=== PATIENT | female | born 1970 | race Caucasian/White ===

== ENCOUNTER → 2017-08-28 | Outpatient (CLI) | payer BC | END | disposition home or self-care (01) | LOC: CFH 09:57 | PROVIDERS: ATTEND Obstetrics & Gynecology | DX: Z12.31 Encounter for screening mammogram for malignant neoplasm of breast (principal) | CPT/HCPCS: 77067 ==

== ENCOUNTER 2019-04-08 11:45 | Day surgery (SDC) | payer BC ==
[2019-04-05 09:28] LABS: BASOPHILS # (AUTO) 0.02 x10^3/uL (0-0.1); BASOPHILS % (AUTO) 0 % (0-1); EOSINOPHILS # (AUTO) 0.09 x10^3/uL (0-0.4); EOSINOPHILS % (AUTO) 2 % (1-7); LYMPHOCYTES # (AUTO) 0.95 x10^3/uL (1-3.4); LYMPHOCYTES % (AUTO) 20 % (22-44); MD NO; MEAN CORPUSCULAR HEMOGLOBIN 31.5 pg (27.0-34.8); MEAN CORPUSCULAR HGB CONC 33.8 g/dL (32.4-35.8); MEAN CORPUSCULAR VOLUME 93.3 fL (80-100); MONOCYTES # (AUTO) 0.38 x10^3/uL (0.2-0.8); MONOCYTES % (AUTO) 8 % (2-9); NEUTROPHILS # (AUTO) 3.37 x10^3/uL (1.8-6.8); NEUTROPHILS % (AUTO) 70 % (42-75); PLATELET COUNT 204 x10^3/uL (130-400); RED BLOOD COUNT 4.53 x10^6/uL (3.82-5.3); RED CELL DISTRIBUTION WIDTH 12.8 % (9.6-15.2)
[2019-04-05 09:39] LABS: ALANINE AMINOTRANSFERASE 26 U/L (12-78); ALBUMIN 3.5 g/dL (3.4-5.0); ANION GAP 6 mmol/L (5-15); CALCIUM 8.5 mg/dL (8.5-10.1); CHLORIDE 105 mmol/L (98-107); CREATININE 0.96 mg/dL (0.55-1.02)
[2019-04-05 09:44] LABS: ALKALINE PHOSPHATASE 79 U/L (45-117); BILIRUBIN,TOTAL 0.6 mg/dL (0.2-1.0); TOTAL PROTEIN 6.7 g/dL (6.4-8.2)
[~2019-04-08] VITALS: Ht 160 cm; Wt 69.0 kg
[~2019-04-08 11:45] MED LIST: No meds per pt.
[2019-04-08] MEDS ORDERED: LACTATED RINGERS 1,000 ML IV SCH (12:17)
[2019-04-08 12:21] VITALS: BP 115/57
[2019-04-08] MEDS ORDERED: LIDOCAINE-MPF 1%, 2ML INFIL ONE (12:30)
[2019-04-08] MEDS ORDERED: GABAPENTIN 300 MG CAPSULE PO ONE (12:30)
[2019-04-08] MEDS ORDERED: ACETAMINOPHEN 500 MG TABLET PO ONE (12:30)
[2019-04-08] MEDS ORDERED: SCOPOLAMINE 1MG PATCH TD SCH (12:30)
[2019-04-08] MEDS ORDERED: hydrALAzine 20 MG/ML, 1ML IV PRN (13:00)
[2019-04-08] MEDS ORDERED: PROMETHAZINE 25 MG/ML, 1ML IV PRN (13:00)
[2019-04-08] MEDS ORDERED: LABETALOL 5MG/ML, 20ML IV PRN (13:00)
[2019-04-08] MEDS ORDERED: HALOPERIDOL 5 MG/ML IV PRN (13:00)
[2019-04-08] MEDS ORDERED: OXYcodone 5 MG/5 ML ORAL.SOL UDC PO PRN (13:00)
[2019-04-08] MEDS ORDERED: MEPERIDINE/PF 25MG/ML,1ML IVPush PRN (13:00)
[2019-04-08] MEDS ORDERED: FENTANYL PF 250 MCG/5ML ONE (13:29)
[2019-04-08] MEDS ORDERED: MIDAZOLAM 1 MG/ML, 2ML ONE (13:29)
[2019-04-08] MEDS ORDERED: EPINEPHRINE 1 MG/ML, 1ML ONE (13:39)
[2019-04-08] MEDS ORDERED: BUPIVACAINE/PF 0.25% ONE (13:39)
[2019-04-08] MEDS ORDERED: FLUORESCEIN SODIUM 500 MG/5 ML ONE (13:39)
[2019-04-08] MEDS ORDERED: GLYCOPYRROLATE 0.2MG/1ML, 5ML ONE (14:13)
[2019-04-08] MEDS ORDERED: NEOSTIGMINE 1 MG/ML, 10ML ONE (14:13)
[2019-04-08] MEDS ORDERED: PROPOFOL 10 MG/ML, 20ML ONE (14:13)
[2019-04-08] MEDS ORDERED: ONDANSETRON 2MG/ML, 2ML ONE ×2 (14:13)
[2019-04-08] MEDS ORDERED: DEXAMETHASONE 4 MG/ML, 1ML ONE (14:13)
[2019-04-08] MEDS ORDERED: CEFAZOLIN 1,000 MG ONE (14:13)
[2019-04-08] MEDS ORDERED: ROCURONIUM 10MG/ML,5ML ONE (14:13)
[2019-04-08] MEDS ORDERED: SUCCINYLCHOLINE 20 MG/ML, 10ML ONE (14:13)
[2019-04-08] MEDS ORDERED: GENTAMICIN 80 MG/2 ML ONE (14:40)
[2019-04-08] MEDS: FENTANYL PF 100 MCG/2ML IV PRN ×3 (16:40→17:25)
[2019-04-08] MEDS ORDERED: HYDROmorphone 1 MG/ML, 1ML INJ ONE (16:42)
[2019-04-08] MEDS ORDERED: FENTANYL PF 100 MCG/2ML ONE (16:42)
[2019-04-08] MEDS: HYDROmorphone 2 MG/ML, 1ML IVPush PRN ×2 (16:50→17:15)
[2019-04-08] MEDS ORDERED: PROMETHAZINE 25 MG/ML, 1ML ONE (16:51)
[2019-04-08] MEDS ORDERED: DIAZEPAM 5 MG/ML, 2ML ONE (17:24)
[2019-04-08] MEDS ORDERED: DIAZEPAM 5 MG/ML, 2ML IVPush PRN (17:30)
[2019-04-08] MEDS ORDERED: ONDANSETRON 2MG/ML, 2ML IV PRN (18:30)
[2019-04-08] MEDS ORDERED: ACETAMINOPHEN 650 MG SUPP PR PRN (18:30)
[2019-04-08] MEDS ORDERED: ACETAMINOPHEN 325 MG TABLET PO PRN (18:30)
[2019-04-08] MEDS ORDERED: D5%-LACTATED RINGERS 1,000 ML IV SCH (18:30)
[2019-04-08] MEDS ORDERED: morphine SULFATE 10 MG/ML, 1ML IV PRN (18:30)
[2019-04-08] MEDS ORDERED: OXYcodone/APAP 5/325MG TABLET PO PRN (18:30)
[2019-04-08 20:19] LABS: ANION GAP 7 mmol/L (5-15); CHLORIDE 108 mmol/L (98-107); CREATININE 0.84 mg/dL (0.55-1.02)
[2019-04-08 20:21] LABS: MEAN CORPUSCULAR HEMOGLOBIN 31.3 pg (27.0-34.8); MEAN CORPUSCULAR HGB CONC 33.6 g/dL (32.4-35.8); MEAN CORPUSCULAR VOLUME 92.9 fL (80-100); MEAN PLATELET VOLUME 8.5 fL (7.4-10.4); PLATELET COUNT 193 x10^3/uL (130-400); RED BLOOD COUNT 4.28 x10^6/uL (3.82-5.3); RED CELL DISTRIBUTION WIDTH 12.5 % (9.6-15.2)
[2019-04-08] MEDS ORDERED: IBUPROFEN 600 MG TABLET PO SCH (21:00)
[2019-04-08] MEDS ORDERED: SIMETHICONE 80 MG CHEW TAB PO SCH (21:00)
[2019-04-08] MEDS ORDERED: ZOLPIDEM 5MG TABLET PO PRN (21:00)
[2019-04-08 21:15] LABS: MD YES
[2019-04-08 21:19] LABS: BAND#(MANUAL) 0.09 x10^3/uL; BANDS%(MANUAL) 1 % (0-7); LYMPH#(MANUAL) 0.74 x10^3/uL (1-3.4); LYMPHS% (MANUAL) 8 % (22-44); MONOS#(MANUAL) 0.19 x10^3/uL (0.3-2.7); MONOS% (MANUAL) 2 % (2-9); SEG#(MANUAL) 8.28 x10^3/uL (1.8-6.8); SEGS% (MANUAL) 89 % (42-75)
[2019-04-08 21:20] LABS: <PLATELET ESTIMATE> ADEQUATE; <PLT MORPHOLOGY> NORMAL PLT MORPH; <RBC MORPHOLOGY> NORMAL
== END 2019-04-08 22:00 | disposition home or self-care (01) ==
LOC: OUT 11:45 → EDSTATUS 15:00 → 4NE 18:02 → OUT 22:00
PROVIDERS: ATTEND Obstetrics & Gynecology
DX: N92.0 Excessive and frequent menstruation with regular cycle (principal); N39.3 Stress incontinence (female) (male); N87.9 Dysplasia of cervix uteri, unspecified; N81.10 Cystocele, unspecified; K21.9 Gastro-esophageal reflux disease without esophagitis; Z79.899 Other long term (current) drug therapy; Z88.2 Allergy status to sulfonamides; Z98.890 Other specified postprocedural states
CPT/HCPCS: 36415; 57240; 57288; 58262; 80048; 80053; 84703; 85025; 86850; 86900; 88307; C1771; J0171; J0330; J0690; J1100; J1170; J1580; J2250; J2405; J2550; J2704; J2710; J3010; J3360; J3490; J7120; G0378

== ENCOUNTER → 2020-01-02 | Outpatient (CLI) | payer BC | END | disposition home or self-care (01) | LOC: CFH 12:49 | PROVIDERS: ATTEND Internal Medicine | DX: Z12.31 Encounter for screening mammogram for malignant neoplasm of breast (principal) | CPT/HCPCS: 77063; 77067 ==